=== PATIENT | female | born 1965 | race Caucasian/White ===

== ENCOUNTER 2017-11-23 08:43 | Emergency (ER) | payer MEDICAID | END 2017-11-23 09:22 | disposition home or self-care (01) | LOC: ERS 08:43 | DX: S00.31XA Abrasion of nose, initial encounter (principal); L03.211 Cellulitis of face; J44.9 Chronic obstructive pulmonary disease, unspecified; F32.9 Major depressive disorder, single episode, unspecified; F41.9 Anxiety disorder, unspecified; F17.210 Nicotine dependence, cigarettes, uncomplicated; Z79.899 Other long term (current) drug therapy; X58.XXXA Exposure to other specified factors, initial encounter | CPT/HCPCS: 99282 ==

== ENCOUNTER 2017-11-25 11:07 | Inpatient (IN) | payer MEDICAID, OTHER ==
[2017-11-25] MEDS ORDERED: ISOVUE-370 76%-LOCM 1 ML ONE (11:23)
[2017-11-25 11:37] LABS: #Basophils 0.1 thou/uL (0.0-0.2); #Eosinphils 0.3 thou/uL (0.0-0.7); #Lymphocytes 3.4 thou/uL (1.20-3.40); #Monocytes 0.5 thou/uL (0.11-0.59); #Neutrophils 5.6 thou/uL (1.40-6.50); %Basophils 0.9 % (0.0-1.0); %Eosinophils 2.9 % (0.0-10.0); %Lymphocytes 33.9 % (21.0-51.0); %Monocytes 5.3 % (0.0-10.0); Hemoglobin 14.6 g/dL (12.0-16.0); Mean Corpuscular HGB CONC 33.7 g/dL (32.0-36.0); Mean Corpuscular Hemoglobin 31.4 pg (27.0-31.0); Mean Corpuscular Volume 93.1 fL (78.0-98.0); Mean Platelet Volume 7.4 fL (7.4-10.4); Platelet Count 284 thou/uL (130-400); RBC Distribution Width 12.7 % (11.5-14.5); Red Blood Cell (RBC) Count 4.64 mill/uL (4.20-5.40); White Blood Cell (WBC) Count 9.9 thou/uL (4.8-10.8)
[2017-11-25 12:07] LABS: ALT (SGPT) 14 U/L (8-55); AST (SGOT) 14 U/L (5-34); Albumin 4.2 g/dL (3.5-5.0); Alkaline Phosphatase 101 U/L (40-150); Anion Gap 13 mmol/L (10-20); BUN (Urea Nitrogen) 17 mg/dL (9.8-20.1); Bilirubin, Total 0.3 mg/dL (0.2-1.2); CRP (Inflammatory) Less than 0.50 mg/dL (= or < 0.5); Calc. Creatinine Clearance 0 mL/min (70-130); Calcium 9.8 mg/dL (7.8-10.44); Carbon Dioxide 28 mmol/L (22-29); Chloride 105 mmol/L (98-107); Estimated GFR-MDRD 51; Glucose 86 mg/dL (70-105); Potassium 4.6 mmol/L (3.5-5.1); Protein, Total 7.2 g/dL (6.0-8.3); Sodium 141 mmol/L (136-145)
[2017-11-25] MEDS ORDERED: Piperacillin/Tazobactam 4.5 GM VIAL ONE (12:57)
--- NOTE | 2017-11-25 13:01 | CT ---
FACIAL BONE CT WITH IV CONTRAST: History: 52-year-old female with history of right sided facial pain and swelling with concern for abscess. FINDINGS: There is some right side nasal and medial anterior right sided subcutaneous swelling and fat strandin g with some thickening of the skin and subdermal region. No evidence for an associated drainable absc ess. There are sinus mucosal changes involving the ethmoid sinuses as well as some minimal mucosal th ickening of the right and left maxillary ostea and ethmoid infundibular regions. Mild aeration of the vertical components of the right and left middle turbinates. No intraorbital mass or associated abno rmality. No focal right frontal or ethmoid sinus abnormal soft tissue or fluid. IMPRESSION: Some focal swelling and subcutaneous fat stranding with some skin and subdermal thickening in the rig ht side of the nose and medial aspect of the right upper cheek and inferior orbital region overlying the right maxillary sinus. No evidence for a drainable abscess. Scattered sinus mucosal disease. No i ntraorbital abnormality. No evidence of acute fracture. POS: CAM
[2017-11-25] MEDS ORDERED: Morphine 4 MG/ML VIAL ONE (13:26)
--- NOTE | 2017-11-25 13:56 | HP ---
DATE OF ADMISSION: 11/25/2017 PRIMARY CARE PROVIDER: Juany Gaytan M.D. REASON FOR ADMISSION: [facility] for fa cial cellulitis, 4-day history of a red area next to her nose on the right face. She has been on Corin trim for 2 days. It has gotten worse. It is raised, tender, exquisitely painful. She denies any fe halima, chills, sweats. PAST MEDICAL HISTORY: COPD on albuterol inhaler, Advair unknown dose and nebulizer therapy as needed . ALLERGIES: No allergies. PAST SURGICAL HISTORY: Three C-sections and appendectomy. FAMILY HISTORY: Mother of hypertension, coronary artery disease. Father of hypertension a nd an aneurysm. She does not know where the aneurysm was. SOCIAL HISTORY: . Full code. Smokes a half a pack a day. Drinks very occasionally. REVIEW OF SYSTEMS: General: No dizziness or fainting. She does have pain in her right face. Eyes: No double vision, blurred vision, flashing lights. Ears, nose and throat: No ear pain or drainage , nasal bleeding, trouble swallowing. Cardiac: No chest pain, orthopnea or paroxysmal nocturnal dys pnea. Respirations: No cough or wheezing, but she is always short of breath. Gastrointestinal: No nausea, vomiting, diarrhea or constipation. Genitourinary: No hematuria, dysuria or nocturia. Mus culoskeletal: No pain or swelling in her arms or legs. Neurologic: She says she had a stroke when she was 19 years old with decreased sensation on the left side of her body. Psychiatric: No anxiety or depression. Skin: No bruises, bleeding or rash. Heme/Lymph: No tender or swollen lymph nodes in the axilla, inguinal or cervical area. PHYSICAL EXAMINATION: GENERAL: Alert, oriented and cooperative. VITAL SIGNS: Temperature 98, pulse 66, respirations 16, blood pressure 130/70. HEENT: Reveal pupils equal, round and reactive to light. Extraocular movements are intact. Sclerae white. Tympanic membranes clear. Nose clear. Throat is clear. NECK: Supple, without jugular venous distention, adenopathy or thyromegaly. CHEST: Hyperresonant with no focal findings. Breath sounds adequate. No wheezing. HEART: Regular rate and rhythm. First and second heart sounds are clear. There are no murmurs or g allops. ABDOMEN: Soft. Bowel sounds are normal. There is no hepatosplenomegaly, no mass, no rebound, no br uits. EXTREMITIES: Reveal no cyanosis, clubbing or edema. PULSES: Carotid, radial, femoral and dorsalis pedis pulses intact. HEME/LYMPH: No tender or swollen lymph nodes in the neck, axilla or inguinal area. SKIN: She has a 1.5 cm, exquisitely tender, raised area just to the right of her nose with mild surr ounding erythema consistent with an early abscess. It is not fluctuant. No evidence that incision a nd drainage would be helpful at this time. NEUROLOGICAL: Cranial nerves II-XII are intact. Moves all extremities. Deep tendon reflexes symmet [place]. LABORATORY DATA: Comp metabolic profile normal except for a creatinine of 1.1. CBC normal. Facial CT shows no drainable abscess. ASSESSMENT: 1. Facial cellulitis/abscess with failed outpatient therapy. 2. Chronic obstructive pulmonary disease. 3. Tobacco abuse. PLAN: Admit. IV antibiotics with Cleocin and Rocephin. I suspect she will eventually need incision and drainage, but is not ready yet. Every 6 hours nebulizer therapies. Continue Advair.
[2017-11-25] MEDS ORDERED: Acetaminophen 325 MG TAB PO PRN (15:12)
[2017-11-25 15:21] VITALS: BMI 31.1
[2017-11-25] MEDS: Clindamycin/D5W 900 MG in Premix Bag 1 BAG IVPB SCH (16:45)
[2017-11-25] MEDS: cefTRIAXone\\ROCEPHIN 2 GM in Sodium Chloride 0.9% 100 ML IVPB SCH (18:15)
[2017-11-25] MEDS: Famotidine 20 MG TAB PO SCH (20:58)
[2017-11-25] MEDS: HYDROcodone/Acetaminophen 7.5/325 mg Tablet PO PRN (20:58)
[2017-11-25] MEDS ORDERED: Famotidine/PF 20 mg/2ml Vial SLOW IVP SCH (21:00)
[2017-11-26] MEDS: Clindamycin/D5W 900 MG in Premix Bag 1 BAG IVPB SCH ×3 (01:11→18:26)
[2017-11-26 04:50] LABS: #Basophils 0.1 thou/uL (0.0-0.2); #Eosinphils 0.4 thou/uL (0.0-0.7); #Lymphocytes 2.1 thou/uL (1.20-3.40); #Monocytes 0.4 thou/uL (0.11-0.59); #Neutrophils 4.4 thou/uL (1.40-6.50); %Eosinophils 5.5 % (0.0-10.0); %Lymphocytes 29.3 % (21.0-51.0); %Monocytes 4.9 % (0.0-10.0); %Neutrophils 59.4 % (42.0-75.0); Hemoglobin 13.4 g/dL (12.0-16.0); Mean Corpuscular HGB CONC 33.9 g/dL (32.0-36.0); Mean Corpuscular Hemoglobin 31.4 pg (27.0-31.0); Mean Corpuscular Volume 92.7 fL (78.0-98.0); Mean Platelet Volume 7.4 fL (7.4-10.4); Platelet Count 247 thou/uL (130-400); RBC Distribution Width 12.6 % (11.5-14.5); Red Blood Cell (RBC) Count 4.27 mill/uL (4.20-5.40); White Blood Cell (WBC) Count 7.3 thou/uL (4.8-10.8)
[2017-11-26] MEDS: Famotidine 20 MG TAB PO SCH ×2 (09:02→22:30)
[2017-11-26] MEDS: Enoxaparin Sodium 40 MG/0.4 ML SYRINGE SC SCH (09:02)
[2017-11-26] MEDS: HYDROcodone/Acetaminophen 7.5/325 mg Tablet PO PRN ×3 (09:10→22:33)
[2017-11-26] MEDS: cefTRIAXone\\ROCEPHIN 2 GM in Sodium Chloride 0.9% 100 ML IVPB SCH (15:30)
--- NOTE | 2017-11-26 18:28 | PDOC.PN ---
- Subjective Encounter Start Date: 11/26/17 Encounter Start Time: 08:40 Pt seen for followup re: cellulitis. Denies chest pain, shortness of breath, fevers or chills. - Objective Resuscitation Status: Resuscitation Status FULL:Full Resuscitation MAR Reviewed: Yes Vital Signs & Weight: Vital Signs (12 hours) Temp Pulse Resp BP Pulse Ox 11/26/17 17:21 98.0 F 78 18 160/99 H 92 L 11/26/17 12:09 97.6 F 74 16 132/82 92 L 11/26/17 08:31 97.9 F 79 16 131/85 94 L 11/26/17 08:00 97.9 F 79 16 94 L I&O: 11/25/17 11/26/17 11/27/17 06:59 06:59 06:59 Intake Total 480 480 Balance 480 480 Result Diagrams: 11/26/17 04:29 11/25/17 11:29 Additional Labs: Labs reviewed by me Phys Exam - Physical Examination Obese HEENT: moist MMs, sclera anicteric, oral pharynx no lesions, 2+ tonsils cellulitis right side of nose Neck: no nodes, no JVD, supple, full ROM Respiratory: no wheezing, no rales, no rhonchi, clear to auscultation bilateral Cardiovascular: RRR, no rub S1, s2 Gastrointestinal: soft, non-tender, no distention, positive bowel sounds Neurological: moves all 4 limbs Psychiatric: normal affect, A&O x 3 Dx/Plan (1) Cellulitis Code(s): L03.90 - CELLULITIS, UNSPECIFIED Status: Acute Comment: continue IV clindamycin and ceftriaxone (2) COPD (chronic obstructive pulmonary disease) Status: Chronic Comment: stable (3) Tobacco abuse Code(s): Z72.0 - TOBACCO USE Status: Chronic Comment: counseled patient re: tobacco cessation - Plan * . Review of Systems - Review of Systems Constitutional: negative: fever, chills, sweats, weakness, malaise Respiratory: negative: Cough, Shortness of Breath, SOB with Excertion, Pleuritic Pain, Wheezing Cardiovascular: negative: chest pain, palpitations, orthopnea, paroxysmal nocturnal dyspnea, edema, light headedness, other Gastrointestinal: negative: Nausea, Vomiting, Abdominal Pain, Diarrhea, Constipation, Melena, Hematochezia Genitourinary: negative: Dysuria, Frequency, Incontinence, Hematuria, Retention Skin: Rash. negative: Lesions, Addi, Bruising - Medications/Allergies Allergies/Adverse Reactions: Allergies Allergy/AdvReac Type Severity Reaction Status Date / Time No Known Allergies Allergy Unverified 07/10/13 07:10 Medications: Current Medications Acetaminophen (Tylenol) 650 mg PO Q4H PRN PRN Reason: Headache/Fever or Pain Hydrocodone Bitart/Acetaminophen ([place] 7.5/325) 1 tab PO Q4H PRN PRN Reason: Moderate Pain (4-6) Last Admin: 11/26/17 14:32 Dose: 1 tab Albuterol/Ipratropium (Duoneb) 3 ml NEB [id number] PRN PRN Reason: SOB &/or Wheezing Enoxaparin Sodium (Lovenox) 40 mg SC 0900 [facility] Last Admin: 11/26/17 09:02 Dose: 40 mg Famotidine (Pepcid) 20 mg PO BID [facility] Last Admin: 11/26/17 09:02 Dose: 20 mg Ceftriaxone Sodium 2 gm/ (Sodium Chloride) 100 mls @ 200 mls/hr IVPB 1600 [facility] Last Admin: 11/26/17 15:30 Dose: 100 mls Clindamycin Phosphate/Dextrose (900 mg/ Device) 50 mls @ 100 mls/hr IVPB 0100, 0900,1700 [facility] Last Admin: 11/26/17 18:26 Dose: 50 mls Zolpidem Tartrate (Ambien) 5 mg PO HSPRN PRN PRN Reason: Insomnia
[2017-11-27] MEDS: Clindamycin/D5W 900 MG in Premix Bag 1 BAG IVPB SCH ×3 (01:33→17:53)
[2017-11-27 05:05] LABS: #Basophils 0.1 thou/uL (0.0-0.2); #Eosinphils 0.5 thou/uL (0.0-0.7); #Lymphocytes 2.9 thou/uL (1.20-3.40); #Monocytes 0.5 thou/uL (0.11-0.59); #Neutrophils 3.1 thou/uL (1.40-6.50); %Basophils 0.8 % (0.0-1.0); %Eosinophils 7.4 % (0.0-10.0); %Lymphocytes 40.9 % (21.0-51.0); %Monocytes 6.7 % (0.0-10.0); %Neutrophils 44.2 % (42.0-75.0); Hemoglobin 13.5 g/dL (12.0-16.0); Mean Corpuscular HGB CONC 33.8 g/dL (32.0-36.0); Mean Corpuscular Hemoglobin 31.4 pg (27.0-31.0); Mean Platelet Volume 7.4 fL (7.4-10.4); Platelet Count 259 thou/uL (130-400); RBC Distribution Width 12.5 % (11.5-14.5)
[2017-11-27 05:15] LABS: Anion Gap 10 mmol/L (10-20); BUN (Urea Nitrogen) 12 mg/dL (9.8-20.1); Calc. Creatinine Clearance 95 mL/min (70-130); Calcium 9.2 mg/dL (7.8-10.44); Carbon Dioxide 30 mmol/L (22-29); Chloride 105 mmol/L (98-107); Estimated GFR-MDRD 62; Glucose 87 mg/dL (70-105); Potassium 4.7 mmol/L (3.5-5.1); Sodium 140 mmol/L (136-145)
[2017-11-27] MEDS: Enoxaparin Sodium 40 MG/0.4 ML SYRINGE SC SCH (08:01)
[2017-11-27] MEDS: HYDROcodone/Acetaminophen 7.5/325 mg Tablet PO PRN ×2 (08:01→17:50)
[2017-11-27] MEDS: Famotidine 20 MG TAB PO SCH ×2 (08:01→19:39)
--- NOTE | 2017-11-27 16:34 | PDOC.PN ---
- Subjective Encounter Start Date: 11/27/17 Encounter Start Time: 10:00 Pt seen for followup re: cellulitis. Denies chest pain, shortness of breath, fevers or chills. No nausea or vomiting. No diarrhea. - Objective Resuscitation Status: Resuscitation Status FULL:Full Resuscitation MAR Reviewed: Yes Vital Signs & Weight: Vital Signs (12 hours) Temp Pulse Resp BP Pulse Ox 11/27/17 08:00 97.7 F 64 20 11/27/17 07:32 97.7 F 64 20 147/90 H 96 I&O: 11/26/17 11/27/17 11/28/17 06:59 06:59 06:59 Intake Total 480 720 Balance 480 720 Result Diagrams: 11/27/17 04:47 11/27/17 04:47 Additional Labs: Labs reviewed by me Phys Exam - Physical Examination Constitutional: NAD HEENT: moist MMs, sclera anicteric, oral pharynx no lesions, 2+ tonsils Neck: no nodes, no JVD, supple, full ROM Respiratory: no wheezing, no rales, no rhonchi, clear to auscultation bilateral Cardiovascular: RRR, no rub S1, S2 Gastrointestinal: soft, non-tender, no distention, positive bowel sounds Neurological: moves all 4 limbs Psychiatric: normal affect, A&O x 3 Deviation from normal: rash to the right of nose, has small amount of fluctuance Dx/Plan (1) Cellulitis Code(s): L03.90 - CELLULITIS, UNSPECIFIED Status: Acute Comment: will continue IV clindamycin and ceftriaxone. If fluctuance increases, will consult gen surg for I&D (2) COPD (chronic obstructive pulmonary disease) Status: Chronic Comment: stable (3) Tobacco abuse Code(s): Z72.0 - TOBACCO USE Status: Chronic Comment: tobacco cessation - Plan * . Review of Systems - Review of Systems Constitutional: negative: fever, chills, sweats, weakness, malaise Eyes: negative: Pain, Vision Change, Conjunctivae Inflammation, Eyelid Inflammation, Redness ENT: negative: Ear Pain, Ear Discharge, Nose Pain, Nose Discharge, Nose Congestion, Mouth Pain, Mouth Swelling, Throat Pain, Throat Swelling Respiratory: negative: Cough, Shortness of Breath, SOB with Excertion, Pleuritic Pain Cardiovascular: negative: chest pain, palpitations, orthopnea, paroxysmal nocturnal dyspnea, edema, light headedness Skin: Rash - Medications/Allergies Allergies/Adverse Reactions: Allergies Allergy/AdvReac Type Severity Reaction Status Date / Time No Known Allergies Allergy Unverified 07/10/13 07:10 Medications: Current Medications Acetaminophen (Tylenol) 650 mg PO Q4H PRN PRN Reason: Headache/Fever or Pain Hydrocodone Bitart/Acetaminophen ([place] 7.5/325) 1 tab PO Q4H PRN PRN Reason: Moderate Pain (4-6) Last Admin: 11/27/17 08:01 Dose: 1 tab Albuterol/Ipratropium (Duoneb) 3 ml NEB [id number] PRN PRN Reason: SOB &/or Wheezing Enoxaparin Sodium (Lovenox) 40 mg SC 0900 [facility] Last Admin: 11/27/17 08:01 Dose: 40 mg Famotidine (Pepcid) 20 mg PO BID [facility] Last Admin: 11/27/17 08:01 Dose: 20 mg Ceftriaxone Sodium 2 gm/ (Sodium Chloride) 100 mls @ 200 mls/hr IVPB 1600 [facility] Last Admin: 11/26/17 15:30 Dose: 100 mls Clindamycin Phosphate/Dextrose (900 mg/ Device) 50 mls @ 100 mls/hr IVPB 0100, 0900,1700 [facility] Last Admin: 11/27/17 08:01 Dose: 50 mls Zolpidem Tartrate (Ambien) 5 mg PO HSPRN PRN PRN Reason: Insomnia
[2017-11-27] MEDS: cefTRIAXone\\ROCEPHIN 2 GM in Sodium Chloride 0.9% 100 ML IVPB SCH (17:53)
[2017-11-28] MEDS: Clindamycin/D5W 900 MG in Premix Bag 1 BAG IVPB SCH ×3 (00:38→17:49)
[2017-11-28 06:03] LABS: #Basophils 0.1 thou/uL (0.0-0.2); #Eosinphils 0.4 thou/uL (0.0-0.7); #Monocytes 0.6 thou/uL (0.11-0.59); #Neutrophils 3.1 thou/uL (1.40-6.50); %Basophils 1.1 % (0.0-1.0); %Eosinophils 6.2 % (0.0-10.0); %Lymphocytes 41.5 % (21.0-51.0); %Neutrophils 43.1 % (42.0-75.0); Hemoglobin 14.2 g/dL (12.0-16.0); Mean Corpuscular Hemoglobin 30.7 pg (27.0-31.0); Mean Corpuscular Volume 93.1 fL (78.0-98.0); Mean Platelet Volume 7.7 fL (7.4-10.4); Platelet Count 262 thou/uL (130-400); RBC Distribution Width 12.6 % (11.5-14.5); Red Blood Cell (RBC) Count 4.62 mill/uL (4.20-5.40); White Blood Cell (WBC) Count 7.2 thou/uL (4.8-10.8)
[2017-11-28 06:21] LABS: Anion Gap 13 mmol/L (10-20); BUN (Urea Nitrogen) 16 mg/dL (9.8-20.1); Calc. Creatinine Clearance 93 mL/min (70-130); Calcium 9.8 mg/dL (7.8-10.44); Carbon Dioxide 29 mmol/L (22-29); Chloride 104 mmol/L (98-107); Estimated GFR-MDRD 61; Glucose 86 mg/dL (70-105); Potassium 5.3 mmol/L (3.5-5.1); Sodium 141 mmol/L (136-145)
[2017-11-28] MEDS: Famotidine 20 MG TAB PO SCH ×2 (08:27→20:37)
[2017-11-28] MEDS: Enoxaparin Sodium 40 MG/0.4 ML SYRINGE SC SCH (08:28)
--- NOTE | 2017-11-28 09:26 | CON ---
DATE OF CONSULTATION: 11/28/2017 REASON FOR CONSULTATION: Abscess, right face. HISTORY: Ms. Gaines is a 52-year-old woman who presented to her primary care doctor with cellul itis of the face. She was treated with antibiotics with worsening of the cellulitis and admitted to the hospital. She states that since her admission, the left side of her face is less red and swollen , but the right side of her face has remained red and swollen and tender. It has now developed a foc al area of swelling and some drainage just lateral to her nose. She denies fevers or chills. PAST MEDICAL HISTORY: COPD, no known drug allergies. PAST SURGICAL HISTORY: C-sections and appendectomy. SOCIAL HISTORY: The patient still actively smokes half pack a day, but is trying to cut down and rec ently smoking less. Rare alcohol and no illicit drug use. FAMILY HISTORY: Hypertension, heart disease, and aneurysm. REVIEW OF SYSTEMS: Ten system review of systems is negative except per HPI and the following she constantino s have chronic dyspnea on exertion due to her COPD. PHYSICAL EXAMINATION: VITAL SIGNS: Patient has been afebrile since her hospital admission. Heart rate is 76, respirations 18, 92% saturated on room air, blood pressure 157/91. GENERAL: Reveals a healthy appearing woman, in no acute distress. She is not flushed or toxic. She is not diaphoretic. HEENT: Reveals erythema, induration and tenderness of the right cheek and nose area with comedogenic appearing swollen and tender abscess just lateral to the nose. This had some active drainage earlie r, but has now scabbed over. No periorbital edema. No other similar lesions. Patient denies presen ce of a cyst in this area prior to her infection and denies trauma to the area. HEART: Regular in its rate and rhythm without murmurs, rubs or gallops. LUNGS: Show diffuse wheezing and diminished breath sounds bilaterally. ABDOMEN: Soft, nontender, nondistended, without hernias or masses. EXTREMITIES: Warm and well perfused without edema. NEUROLOGIC: No focal deficits. PSYCHIATRIC: Alert, oriented, and appropriate. LABORATORY DATA AND IMAGING: White count is normal at 7.2, hematocrit 42, platelets 262. Electrolyt es are unremarkable except for mildly elevated potassium of 5.3. LFTs were normal on admission. A s wab of the drainage from her abscess yesterday showed rare gram positive cocci in clusters. Cultures are pending. CT on admission showed extensive edema in the cheek area, but no focal drainable fluid collection. ASSESSMENT AND PLAN: Face abscess. Options include drainage at the bedside or in the operating room , the patient prefers to go to the operating room due to the location of the abscess and some anxiety regarding injection of local anesthesia into her face. She may have a preexisting cyst, which becam e infected or may be a straightforward skin abscess. After incision and drainage, she will require c ontinued dressing changes and antibiotics. The procedure and its inherent risks were discussed with the patient. These include, but are not limited to bleeding, infection, risks of anesthesia, scarrin g, poor cosmetic outcome and need for further procedure. She understands and accepts these risks and wishes to proceed.
[2017-11-28] MEDS: HYDROcodone/Acetaminophen 7.5/325 mg Tablet PO PRN ×2 (10:03→20:37)
[2017-11-28] MEDS ORDERED: Albuterol Sulfate 1.25 MG/3 ML NEB ONE (10:30)
[2017-11-28] MEDS ORDERED: Lidocaine 2% 10 ML INJ ONE (10:58)
[2017-11-28] MEDS ORDERED: Bupivacaine/Epinephrine 0.25% 30 ML VIAL ONE (10:58)
[2017-11-28] MEDS ORDERED: Fentanyl 100 MCG/2 ML VIAL ONE (10:59)
[2017-11-28] MEDS ORDERED: Midazolam HCl 2 mg/2 ml Vial ONE (10:59)
[2017-11-28] MEDS ORDERED: Promethazine HCl 25 MG/ML VIAL IM PRN (12:08)
[2017-11-28] MEDS ORDERED: Promethazine HCl 25 MG/ML VIAL SLOW IVP PRN (12:08)
[2017-11-28] MEDS ORDERED: Sodium Chloride For Inhalation 0.9% 3 ML NEB ONE (12:08)
[2017-11-28] MEDS ORDERED: Ondansetron HCl/PF 4 MG/2 ML Vial IVP PRN (12:08)
[2017-11-28] MEDS ORDERED: Lidocaine 1% PF 5 ML VIAL ONE (13:58)
[2017-11-28] MEDS ORDERED: Ondansetron HCl/PF 4 MG/2 ML Vial ONE (13:58)
[2017-11-28] MEDS ORDERED: ePHEDrine/0.9% NaCl/PF SYRINGE 50 mg/10 ml ONE (13:58)
[2017-11-28] MEDS ORDERED: PHENYLEPHRINE-NS 100 MCG/ML 10 ML SYRINGE ONE (13:58)
[2017-11-28] MEDS ORDERED: Dexamethasone 20 MG/5 ML VIAL ONE (13:58)
[2017-11-28] MEDS ORDERED: PROPOFOL 200 MG/20 ML VIAL ONE (13:58)
--- NOTE | 2017-11-28 15:20 | PDOC.PN ---
- Subjective Encounter Start Date: 11/28/17 Encounter Start Time: 09:00 Pt seen for followup re: cellulitis. Denies chest pain. Facial pain better. - Objective Resuscitation Status: Resuscitation Status FULL:Full Resuscitation MAR Reviewed: Yes Vital Signs & Weight: Vital Signs (12 hours) Temp Pulse Resp BP Pulse Ox 11/28/17 13:29 97.6 F 79 16 141/85 H 94 L 11/28/17 08:00 98.0 F 76 18 11/28/17 07:25 98.0 F 76 18 157/91 H 93 L I&O: 11/27/17 11/28/17 11/29/17 06:59 06:59 06:59 Intake Total 720 650 Balance 720 650 Result Diagrams: 11/28/17 05:13 11/28/17 05:13 Additional Labs: Labs reviewed by me Phys Exam - Physical Examination Constitutional: NAD HEENT: moist MMs, sclera anicteric, oral pharynx no lesions, 2+ tonsils Neck: no nodes, no JVD, supple, full ROM Respiratory: no wheezing, no rales, no rhonchi, clear to auscultation bilateral Cardiovascular: RRR, no rub S1, S2 Gastrointestinal: soft, non-tender, no distention, positive bowel sounds Neurological: moves all 4 limbs Psychiatric: normal affect Deviation from normal: facial rash with fluctuance Dx/Plan (1) Cellulitis and abscess of face Code(s): L03.211 - CELLULITIS OF FACE; L02.01 - CUTANEOUS ABSCESS OF FACE Status: Acute Comment: continue IV clindamycin and ceftriaxone. Pt to go for I&D today (2) COPD (chronic obstructive pulmonary disease) Status: Chronic Comment: stable (3) Tobacco abuse Code(s): Z72.0 - TOBACCO USE Status: Chronic - Plan * . Review of Systems - Review of Systems Constitutional: negative: fever, chills, sweats, weakness, malaise ENT: negative: Ear Pain, Ear Discharge, Nose Pain, Nose Discharge, Nose Congestion, Mouth Pain, Mouth Swelling, Throat Pain, Throat Swelling Respiratory: negative: Cough, Shortness of Breath, SOB with Excertion, Pleuritic Pain, Wheezing Cardiovascular: negative: chest pain, palpitations, orthopnea, paroxysmal nocturnal dyspnea, edema, light headedness Gastrointestinal: negative: Nausea, Vomiting, Abdominal Pain, Diarrhea, Constipation, Melena, Hematochezia Genitourinary: negative: Dysuria, Frequency, Incontinence, Hematuria, Retention Skin: Rash - Medications/Allergies Allergies/Adverse Reactions: Allergies Allergy/AdvReac Type Severity Reaction Status Date / Time No Known Allergies Allergy Unverified 07/10/13 07:10 Medications: Current Medications Acetaminophen (Tylenol) 650 mg PO Q4H PRN PRN Reason: Headache/Fever or Pain Hydrocodone Bitart/Acetaminophen ([place] 7.5/325) 1 tab PO Q4H PRN PRN Reason: Moderate Pain (4-6) Last Admin: 11/28/17 10:03 Dose: 1 tab Albuterol/Ipratropium (Duoneb) 3 ml NEB [id number] PRN PRN Reason: SOB &/or Wheezing Enoxaparin Sodium (Lovenox) 40 mg SC 0900 [facility] Last Admin: 11/28/17 08:28 Dose: Not Given Famotidine (Pepcid) 20 mg PO BID [facility] Last Admin: 11/28/17 08:27 Dose: 20 mg Ceftriaxone Sodium 2 gm/ (Sodium Chloride) 100 mls @ 200 mls/hr IVPB 1600 [facility] Last Admin: 11/27/17 17:53 Dose: 100 mls Clindamycin Phosphate/Dextrose (900 mg/ Device) 50 mls @ 100 mls/hr IVPB 0100, 0900,1700 [facility] Last Admin: 11/28/17 08:24 Dose: 50 mls Zolpidem Tartrate (Ambien) 5 mg PO HSPRN PRN PRN Reason: Insomnia
[2017-11-28] MEDS: cefTRIAXone\\ROCEPHIN 2 GM in Sodium Chloride 0.9% 100 ML IVPB SCH (17:48)
[2017-11-29] MEDS: Clindamycin/D5W 900 MG in Premix Bag 1 BAG IVPB SCH ×3 (00:37→16:14)
[2017-11-29] MEDS: Enoxaparin Sodium 40 MG/0.4 ML SYRINGE SC SCH (10:11)
[2017-11-29] MEDS: HYDROcodone/Acetaminophen 7.5/325 mg Tablet PO PRN ×3 (10:12→22:07)
[2017-11-29] MEDS: Famotidine 20 MG TAB PO SCH ×2 (10:12→22:07)
[2017-11-29] MEDS: cefTRIAXone\\ROCEPHIN 2 GM in Sodium Chloride 0.9% 100 ML IVPB SCH (15:31)
[2017-11-29] MEDS: Zolpidem Tartrate 5 MG TAB PO PRN (18:43)
--- NOTE | 2017-11-29 19:24 | PDOC.PN ---
- Subjective Encounter Start Date: 11/29/17 Encounter Start Time: 19:00 Subjective: f/u for facial cellulitis/abscess s/p I&D on Clindamycin and Rocephin. -: Some pain but able to eat ok. No fever. - Objective Resuscitation Status: Resuscitation Status FULL:Full Resuscitation MAR Reviewed: Yes Vital Signs & Weight: Vital Signs (12 hours) Temp Pulse Resp BP Pulse Ox 11/29/17 17:25 97.4 F L 77 20 153/101 H 96 11/29/17 11:39 97.6 F 72 20 130/87 94 L 11/29/17 08:00 97.8 F 63 20 97 11/29/17 07:38 97.8 F 63 20 154/86 H 97 Weight Admit Weight 193 lb 2 oz Weight 193 lb 2 oz I&O: 11/28/17 11/29/17 11/30/17 06:59 06:59 06:59 Intake Total 650 50 720 Balance 650 50 720 Result Diagrams: 11/28/17 05:13 11/28/17 05:13 Additional Labs: Microbiology 11/27/17 19:01 Face - Abscess Bacterial Culture - Final Methicillin resistant S.aureus 11/28/17 11:48 Nose - Abscess Bacterial Culture - Preliminary 11/28/17 11:48 Nose - Abscess Staphylococcus aureus Phys Exam - Physical Examination Constitutional: NAD R cheek and nares region with edema, erythema HEENT: PERRLA, sclera anicteric, oral pharynx no lesions Neck: no nodes, no JVD, supple, full ROM scattered wheezes and diminished in bases Respiratory: no rales, no rhonchi S1, S2 Cardiovascular: RRR, no significant murmur, no rub, gallop Gastrointestinal: soft, non-tender, no distention, positive bowel sounds Musculoskeletal: no edema, pulses present Neurological: non-focal, normal sensation, moves all 4 limbs Psychiatric: normal affect, A&O x 3 Skin: normal turgor, cap refill <2 seconds Dx/Plan (1) Cellulitis and abscess of face Code(s): L03.211 - CELLULITIS OF FACE; L02.01 - CUTANEOUS ABSCESS OF FACE Status: Acute Comment: Continue Clindamycin and Ceftriaxone. s/p I&D of abscess, Cx showing MRSA (2) COPD (chronic obstructive pulmonary disease) Status: Chronic Comment: Add Dulera 2 puffs BID and Albuterol MDI 2 puffs q6h prn (3) Tobacco abuse Code(s): Z72.0 - TOBACCO USE Status: Chronic Comment: Tobacco cessation resources - Plan continue antibiotics, social human services assistants, out of bed/ambulate, DVT proph w/SCDs Stable overall -: Continue Clindamycin and Rocephin -: Local WCT -: Pain control as clinically indicated * .
[2017-11-29] MEDS ORDERED: PROVENTIL INHALER 6.7 G (200 INHALATIONS) INH PRN (19:31)
--- NOTE | 2017-11-29 21:01 | PRG ---
DATE OF SERVICE: 11/29/2017 Ms. Gaines is postoperative day #1 from incision and drainage of a right facial abscess. She is feeling well and her pain is less. On examination with the wound care team, the abscess cavity is c lean and granulating, there is no expressible purulence or fluctuance and the erythema complete ly resolved. She is to continue with wound packing and antibiotics. I anticipate that this will ___ __ quickly when it is too shallow, she can transition to bacitracin or antibiotic ointment and Band-A id. She should keep the area covered while healing to avoid hyperpigmented scarring. She can follow up in my clinic for wound check in a week or two.
[2017-11-30] MEDS: Clindamycin/D5W 900 MG in Premix Bag 1 BAG IVPB SCH ×3 (01:22→17:12)
[2017-11-30] MEDS: Mometasone/Formoterol 120 PUFF INHALER INH SCH ×2 (07:47→19:58)
[2017-11-30] MEDS: Enoxaparin Sodium 40 MG/0.4 ML SYRINGE SC SCH (08:15)
[2017-11-30] MEDS: Famotidine 20 MG TAB PO SCH ×2 (08:16→21:45)
[2017-11-30] MEDS: HYDROcodone/Acetaminophen 7.5/325 mg Tablet PO PRN ×2 (09:44→21:45)
--- NOTE | 2017-11-30 10:41 | PDOC.PN ---
- Subjective Encounter Start Date: 11/30/17 Encounter Start Time: 10:15 Subjective: f/u for R facial abscess/cellulitis with MRSA s/p I&D POD #2. -: Feels ok overall. No drainage. No fever. Eating ok. - Objective Resuscitation Status: Resuscitation Status FULL:Full Resuscitation MAR Reviewed: Yes Vital Signs & Weight: Vital Signs (12 hours) Temp Pulse Resp BP Pulse Ox 11/30/17 07:47 87 16 95 11/30/17 07:46 98.0 F 94 24 H 165/99 H 93 L Weight Admit Weight 193 lb 2 oz Weight 193 lb 2 oz I&O: 11/29/17 11/30/17 12/01/17 06:59 06:59 06:59 Intake Total 50 720 Balance 50 720 Result Diagrams: 11/28/17 05:13 11/28/17 05:13 Additional Labs: Microbiology 11/27/17 19:01 Face - Abscess Bacterial Culture - Final Methicillin resistant S.aureus 11/28/17 11:48 Nose - Abscess Bacterial Culture - Preliminary 11/28/17 11:48 Nose - Abscess Staphylococcus aureus Phys Exam - Physical Examination Constitutional: NAD R nares with erythema and open, granulation tissue HEENT: PERRLA, sclera anicteric, oral pharynx no lesions Neck: no nodes, no JVD, supple, full ROM exp wheezes Respiratory: no rhonchi S1, S2 Cardiovascular: RRR, no significant murmur, no rub, gallop Gastrointestinal: soft, non-tender, no distention, positive bowel sounds Musculoskeletal: no edema, pulses present Neurological: non-focal, normal sensation, moves all 4 limbs Psychiatric: normal affect, A&O x 3 Skin: no rash, normal turgor, cap refill <2 seconds Dx/Plan (1) Cellulitis and abscess of face Code(s): L03.211 - CELLULITIS OF FACE; L02.01 - CUTANEOUS ABSCESS OF FACE Status: Acute Comment: Continue Clindamycin and d/c Ceftriaxone. s/p I&D of abscess, Cx showing MRSA, plan for transition to po Clindamycin in am (2) COPD (chronic obstructive pulmonary disease) Status: Chronic Comment: Add Dulera 2 puffs BID and Albuterol MDI 2 puffs q6h prn (3) Tobacco abuse Code(s): Z72.0 - TOBACCO USE Status: Chronic Comment: Tobacco cessation resources - Plan continue antibiotics, out of bed/ambulate Stable overall -: Continue Clindamycin IV another 24h then convert to po -: Local WCT -: Topical Bacitracin for home -: Likely home in am * .
[2017-11-30 19:25] VITALS: BP 151/85
--- NOTE | 2017-11-30 19:57 | PDOC.GSPN ---
Surgery Progress Note: Subj - Subjective Narrative: Patient feels fine. Her face is still a little sore but she is not having any pain in this tolerating her dressing changes. The erythema has resolved and the wound is clean and packed. Assessment/plan: MRSA facial abscess. She can be discharged home when she is comfortable with doing her dressing changes. She can return to see me in 2 weeks ' time or can follow up in the outpatient wound care clinic. Surgery Progress Note: Obj - Vital signs Vital signs: Vital Signs - Most Recent Temp Pulse Resp BP Pulse Ox 98.1 F 82 18 151/85 H 93 L 11/30/17 19:22 11/30/17 19:22 11/30/17 19:22 11/30/17 19:22 11/30/17 19:22 Surgery Progress Note: Results - Labs Result Diagrams: 11/28/17 05:13 11/28/17 05:13
[2017-11-30] MEDS: Zolpidem Tartrate 5 MG TAB PO PRN (21:45)
[2017-12-01] MEDS: Clindamycin/D5W 900 MG in Premix Bag 1 BAG IVPB SCH ×2 (00:46→08:10)
[2017-12-01 07:30] VITALS: TEMP 97.4
[2017-12-01] MEDS: Mometasone/Formoterol 120 PUFF INHALER INH SCH (07:30)
[2017-12-01] MEDS: Famotidine 20 MG TAB PO SCH (08:09)
[2017-12-01] MEDS: Enoxaparin Sodium 40 MG/0.4 ML SYRINGE SC SCH (08:10)
--- NOTE | 2017-12-01 12:57 | DIS ---
DATE OF ADMISSION: 11/25/2017 DATE OF DISCHARGE: 12/01/2017 DISCHARGE DIAGNOSES: 1. Right facial cellulitis/abscess with methicillin-resistant Staphylococcus aureus. 2. Status post incision and drainage of #1. 3. Chronic obstructive pulmonary disease, stable. 4. Tobacco abuse. CONSULTATIONS: Dr. Castillo with General Surgery Service. PERTINENT LAB AND X-RAY FINDINGS: Creatinine ranged between 0.94-1.11. Estimated GFR ranged between 51-62. LFTs within normal limits. CRP less than 0.5. CBC within normal limits. Facial abscess, w ound culture dated 11/27/2017 and 11/28/2017, positive for methicillin-resistant Staphylococcus aureu s. CT of the facial bones dated 11/25/2017 showed focal swelling and subcutaneous fat stranding on t he right side of the nose and medial aspect of the right upper cheek and inferior orbital region. HOSPITAL COURSE: The patient was initially admitted to the medical floor after presenting with right facial cellulitis after failed outpatient therapy involving her nasolabial region and right infraorb ital area. The patient had been treated previously with Bactrim; however, progressed with increasing swelling and pain to the face. The patient was placed on IV Cleocin and Rocephin with wound culture s showing methicillin-resistant Staphylococcus aureus. The patient underwent incision and drainage b y the General Surgery Service with local wound care by the Wound Care Service. The patient continued on IV antibiotic therapy throughout the hospital course to include clindamycin. The patient transit ioned to oral clindamycin and will complete a 7-day course after discharge. I have examined the yunior ent at the time of discharge and discussed followup instructions. The patient verbalizes understandi ng and agreement and ready for discharge on 12/01/2017. DISCHARGE MEDICATIONS: 1. Cleocin 450 mg 1 tab p.o. q.8h. x7 days. 2. Advair Diskus 1 inhalation daily. 3. Albuterol nebulized solution 3 mL nebulized q.i.d. p.r.n. FOLLOWUP: The patient may follow up with her primary care clinic at [facility] in [place], [place] with in 7 days of discharge. The patient will follow up with Dr. Castillo with General Surgery Service wit hin 10 days. CONDITION ON DISCHARGE: Stable. ACTIVITY: Ad chelsie. DIET: Regular. CODE STATUS: Full. DISPOSITION: Home on 12/01/2017.
--- NOTE | 2017-12-07 14:52 | OP ---
PROCEDURE: I&D of right facial abscess. HISTORY: Ms. Gaines is a 52-julita-old woman who developed cellulitis and swelling of her right ch elem, very close to her eye, this originated from a lesion on the side of her nose. She has not respo nded to antibiotics and there was some spontaneous drainage from it earlier in her hospital stay whic h has since stopped. Recommendation was made to perform a formal I&D to make sure that the abscess i s completely drained. The patient wanted to do this under anesthesia. PROCEDURE IN DETAIL: After informed consent was obtained and appropriate preoperative antibiotics we re administered, the patient was taken to the operating room. She was placed in supine position and anesthesia was administered. She was prepped and draped in a standard sterile fashion and local anes thesia infused to the skin and subcutaneous tissues surrounding the abscess. The previous drainage s ite was excised in an elliptical incision in the direction of Langerhans lines and the subcutaneous t issue was debrided of a small amount of necrotic tissue. There was no large abscess cavity and there was no significant tunneling. The wound was packed and the patient was extubated and taken to the r ecovery room in good condition. Estimated blood loss was minimal. There were no complications. The re were no specimens.
--- NOTE | 2017-12-23 06:15 | PQF ---
LEXI KWONG KIMIYE MD [id number] CLINICAL DOCUMENTATION CLARIFICATION FORM: POST DISCHARGE DATE: 12/23/2017 ATTN: Dr. Jacob Please exercise your independent, professional judgment in responding to the clarification form. Clinical indicators are provided on the bottom of this form for your review Please check appropriate box(s): [ ] Excisional Debridement: [ ] Excised [ ] Cut away [ ] Other: Depth / layer: (deepest layer of debridement): [ ] Skin[ ] SubQ Tissue [ ] Fascia [ ] Muscle [ ] Tendon [ ] Bone Appearance of wound: (e.g., down to fresh bleeding tissue, etc.)___ Margins: (please specify): / x x Instruments used: [ ] Scissors [ ] Scalpel [ ] Curette [ ] Soft tissue clipper [ ] Other: [ ] Non-excisional Debridement: (Removal by flushing, brushing, chemical, or washing) Depth / layer: (deepest layer of debridement): [ ] Skin[ ] Subcutaneous [ ] Fascia [ ] Muscle [ ] Tendon [ ] Bone [ ] Incision and Drainage only (No Debridement): Depth:[ ] Skin [ ] Subcutaneous [ ] Fascia [ ] Muscle [ ] Tendon [ ] Bone [ ] Other procedure diagnosis (please specify) [ ] Unable to determine For continuity of documentation, please document condition throughout progress notes and discharge summary. Thank You. CLINICAL INDICATORS - SIGNS / SYMPTOMS / LABS Per operative report: The previous drainage site was excised in an elliptical incision in the direction of Langerhans lines and the subcutaneous tissue was debrided of a small amount of necrotic tissue. RISK FACTORS Per discharge summary: Right facial cellulitis/abscess with methicillin- resistant Staphylococcus aureus. TREATMENTS: Per operative report: I&D of right facial abscess. (This form is maintained as a part of the permanent medical record) 2014 [employer]. All Rights Reserved Kenzie [email or web address] [phone] [email or web address]
== END 2017-12-01 12:54 | disposition home or self-care (01) | DRG 580 ==
LOC: ERS 11:07 → T4-A 14:57
PROVIDERS: ADMIT Internal Medicine; ATTEND Internal Medicine
PROC: 0W920ZZ Drainage of Face, Open Approach (ICD-10-PCS; principal; 2017-11-28)
DX: L02.01 Cutaneous abscess of face (principal); L03.211 Cellulitis of face; J44.9 Chronic obstructive pulmonary disease, unspecified; F17.210 Nicotine dependence, cigarettes, uncomplicated; B95.62 Methicillin resistant Staphylococcus aureus infection as the cause of diseases classified elsewhere; Z79.899 Other long term (current) drug therapy
CPT/HCPCS: 36415; 70487; 80048; 80053; 85025; 86140; 87070; 87076; 87077; 87186; 87205; 96365; 96375; J0696; J1100; J1650; J2001; J2250; J2270; J2405; J2543; J2704; J3010; J3490; J7050; J7620; S0028

== ENCOUNTER 2020-10-31 13:28 | Emergency (ER) | payer OTHER ==
[2020-10-31 14:52] LABS: #Basophils 0.1 thou/uL (0.0-0.2); #Eosinphils 0.4 thou/uL (0.0-0.7); #Lymphocytes 2.9 thou/uL (1.20-3.40); #Monocytes 0.5 thou/uL (0.11-0.59); %Basophils 0.8 % (0.0-1.0); %Eosinophils 3.4 % (0.0-10.0); %Lymphocytes 26.9 % (21.0-51.0); %Monocytes 4.5 % (0.0-10.0); %Neutrophils 64.3 % (42.0-75.0); Hemoglobin 15.7 g/dL (12.0-16.0); Mean Corpuscular HGB CONC 34.8 g/dL (32.0-36.0); Mean Corpuscular Hemoglobin 32.3 pg (27.0-31.0); Mean Corpuscular Volume 92.8 fL (78.0-98.0); Mean Platelet Volume 8.7 fL (7.4-10.4); Platelet Count 278 thou/uL (130-400); RBC Distribution Width 12.2 % (11.5-14.5); Red Blood Cell (RBC) Count 4.87 mill/uL (4.20-5.40); White Blood Cell (WBC) Count 10.9 thou/uL (4.8-10.8)
[2020-10-31 15:06] LABS: ALT (SGPT) 9 U/L (8-55); AST (SGOT) 13 U/L (5-34); Albumin 4.3 g/dL (3.5-5.0); Alkaline Phosphatase 121 U/L (40-110); Anion Gap 12 mmol/L (10-20); BUN (Urea Nitrogen) 14 mg/dL (9.8-20.1); Bilirubin, Total 0.2 mg/dL (0.2-1.2); Calc. Creatinine Clearance 0 mL/min (70-130); Calcium 9.4 mg/dL (7.8-10.44); Carbon Dioxide 26 mmol/L (22-29); Chloride 107 mmol/L (98-107); Globulin 3.3 g/dL (2.4-3.5); Glucose 116 mg/dL (70-105); Potassium 4.2 mmol/L (3.5-5.1); Protein, Total 7.6 g/dL (6.0-8.3); Sodium 141 mmol/L (136-145)
[2020-10-31] MEDS ORDERED: Ketorolac Tromethamine 30 MG/ML VIAL ONE (16:43)
== END 2020-10-31 18:54 | disposition home or self-care (01) ==
LOC: ERS 13:28
DX: M79.651 Pain in right thigh (principal); R53.1 Weakness; M19.90 Unspecified osteoarthritis, unspecified site; J43.9 Emphysema, unspecified; F17.210 Nicotine dependence, cigarettes, uncomplicated; Z86.73 Personal history of transient ischemic attack (TIA), and cerebral infarction without residual deficits
CPT/HCPCS: 36415; 80053; 85025; 93923; 96372; J1885; J7620

== ENCOUNTER 2024-10-31 08:42 | Outpatient (CLI) | payer OTHER | END 2024-10-31 08:43 | disposition home or self-care (01) | LOC: RAD 08:42 | PROVIDERS: ATTEND Internal Medicine | DX: R06.00 Dyspnea, unspecified (principal); J98.4 Other disorders of lung | CPT/HCPCS: 71046 ==

== ENCOUNTER 2025-02-05 11:54 | Emergency (ER) | payer OTHER ==
[~2025-02-05 11:54] MED LIST: Iopamidol-370 76% 500 ML MDV (1 ML CHARGE) ONE
[2025-02-05 13:50] LABS: #Basophils 0.05 10x3/uL (0.0-0.2); #Eosinophils 0.34 10x3/uL (0.0-0.7); #Monocytes 0.48 10x3/uL (0.11-0.59); #Neutrophils 3.91 10x3/uL (1.40-6.50); %Basophils 0.7 % (0.0-1.0); %Eosinophils 4.6 % (0.0-10.0); %Lymphocytes 35.5 % (21.0-51.0); %Monocytes 6.5 % (0.0-10.0); %Neutrophils 52.4 % (42.0-75.0); Hematocrit 45.9 % (36.0-47.0); Hemoglobin 14.4 g/dL (12.0-16.0); Mean Corpuscular Hemoglobin 28.5 pg (27.0-31.0); Mean Corpuscular Volume 90.7 fL (78.0-98.0); Platelet Count 265 10x3/uL (130-400); Red Blood Cell (RBC) Count 5.06 mill/uL (4.20-5.40); White Blood Cell (WBC) Count 7.44 10x3/uL (4.8-10.8)
[2025-02-05 14:08] LABS: ALT (SGPT) 16 U/L (Less than 34); AST (SGOT) 27 U/L (11-34); Albumin 4.4 g/dL (3.1-4.5); Alkaline Phosphatase 121 U/L (40-110); Anion Gap 12 mmol/L (10-20); BUN (Urea Nitrogen) 20 mg/dL (9.8-20.1); Bilirubin, Total 0.2 mg/dL (0.3-1.2); Calc. Creatinine Clearance 0 mL/min (70-130); Calcium 9.8 mg/dL (7.8-10.44); Carbon Dioxide 34 mmol/L (23-31); Chloride 102 mmol/L (98-107); Globulin 3.6 g/dL (2.4-3.5); Glucose 111 mg/dL (80-115); Potassium 4.3 mmol/L (3.5-5.1); Sodium 144 mmol/L (136-145)
== END 2025-02-05 15:45 | disposition home or self-care (01) ==
LOC: ERS 11:54
DX: J44.1 Chronic obstructive pulmonary disease with (acute) exacerbation (principal); F17.210 Nicotine dependence, cigarettes, uncomplicated; Z79.51 Long term (current) use of inhaled steroids
CPT/HCPCS: 36415; 71046; 71275; 80053; 83605; 83880; 84484; 85025; 93005; 96374; J2919; Q9967